=== PATIENT | male | born 1955 | race Caucasian/White ===

== ENCOUNTER 2018-06-10 09:09 | Emergency (ER) | payer OTHER ==
[2018-06-10] MEDS ORDERED: diphenhydrAMINE 50 MG/ML VIAL ONE (09:32)
[2018-06-10] MEDS ORDERED: Adacel (T-DAP) 0.5 ML VIAL ONE (09:32)
[2018-06-10 09:49] LABS: PTT 29.4 SEC (22.9-36.1); Prothrombin Time 12.9 SEC (12.0-14.7)
[2018-06-10 09:51] LABS: ALT (SGPT) 26 U/L (8-55); AST (SGOT) 18 U/L (5-34); Albumin 4.2 g/dL (3.4-4.8); Alkaline Phosphatase 64 U/L (40-150); Anion Gap 14 mmol/L (10-20); BUN (Urea Nitrogen) 14 mg/dL (8.4-25.7); Bilirubin, Total 0.9 mg/dL (0.2-1.2); Calc. Creatinine Clearance 0 mL/min (70-130); Calcium 9.2 mg/dL (7.8-10.44); Carbon Dioxide 22 mmol/L (23-31); Chloride 109 mmol/L (98-107); Estimated GFR-MDRD 75; Glucose 103 mg/dL (80-115); Potassium 3.6 mmol/L (3.5-5.1); Protein, Total 7.2 g/dL (5.8-8.1); Sodium 141 mmol/L (136-145)
[2018-06-10 09:52] LABS: #Basophils 0.1 thou/uL (0.0-0.2); #Eosinphils 0.1 thou/uL (0.0-0.7); #Monocytes 0.6 thou/uL (0.11-0.59); #Neutrophils 3.6 thou/uL (1.40-6.50); %Basophils 1.1 % (0.0-1.0); %Eosinophils 2.2 % (0.0-10.0); %Lymphocytes 31.2 % (21.0-51.0); %Monocytes 8.8 % (0.0-10.0); %Neutrophils 56.7 % (42.0-75.0); Hemoglobin 15.6 g/dL (14.0-18.0); Mean Corpuscular HGB CONC 37.5 g/dL (32.0-36.0); Mean Corpuscular Hemoglobin 29.9 pg (27.0-31.0); Mean Corpuscular Volume 79.8 fL (78.0-98.0); Platelet Count 188 thou/uL (130-400); Red Blood Cell (RBC) Count 5.21 mill/uL (4.70-6.10); White Blood Cell (WBC) Count 6.3 thou/uL (4.8-10.8)
[2018-06-10 09:53] LABS: MDiff Complete? YES
[2018-06-10] MEDS ORDERED: Fentanyl 100 MCG/2 ML VIAL ONE (12:26)
[2018-06-10 13:16] LABS: #Basophils 0.1 thou/uL (0.0-0.2); #Eosinphils 0.1 thou/uL (0.0-0.7); #Lymphocytes 1.9 thou/uL (1.20-3.40); #Monocytes 0.6 thou/uL (0.11-0.59); #Neutrophils 4.8 thou/uL (1.40-6.50); %Basophils 0.7 % (0.0-1.0); %Eosinophils 1.2 % (0.0-10.0); %Lymphocytes 26.1 % (21.0-51.0); %Monocytes 7.8 % (0.0-10.0); %Neutrophils 64.2 % (42.0-75.0); Hemoglobin 15.8 g/dL (14.0-18.0); Lymphocytes 22 % (21-51); MDiff Complete? YES; Mean Corpuscular HGB CONC 36.8 g/dL (32.0-36.0); Mean Corpuscular Hemoglobin 29.6 pg (27.0-31.0); Mean Corpuscular Volume 80.3 fL (78.0-98.0); Mean Platelet Volume 6.8 fL (7.4-10.4); Monocytes 7 % (0-10); Neutrophil 71 % (42-75); Platelet Count 184 thou/uL (130-400); RBC Distribution Width 11.1 % (11.5-14.5); Red Blood Cell (RBC) Count 5.33 mill/uL (4.70-6.10); White Blood Cell (WBC) Count 7.4 thou/uL (4.8-10.8)
[2018-06-10 16:08] LABS: #Basophils 0.1 thou/uL (0.0-0.2); #Eosinphils 0.1 thou/uL (0.0-0.7); #Lymphocytes 2.2 thou/uL (1.20-3.40); #Monocytes 0.8 thou/uL (0.11-0.59); #Neutrophils 6.7 thou/uL (1.40-6.50); %Eosinophils 1.2 % (0.0-10.0); %Lymphocytes 22.1 % (21.0-51.0); %Monocytes 8.1 % (0.0-10.0); %Neutrophils 67.7 % (42.0-75.0); Hemoglobin 15.3 g/dL (14.0-18.0); Mean Corpuscular HGB CONC 37.1 g/dL (32.0-36.0); Mean Corpuscular Hemoglobin 29.8 pg (27.0-31.0); Mean Corpuscular Volume 80.3 fL (78.0-98.0); Mean Platelet Volume 6.7 fL (7.4-10.4); Platelet Count 174 thou/uL (130-400); RBC Distribution Width 11.1 % (11.5-14.5); Red Blood Cell (RBC) Count 5.12 mill/uL (4.70-6.10); White Blood Cell (WBC) Count 9.8 thou/uL (4.8-10.8)
[2018-06-10 16:20] LABS: MDiff Complete? YES
== END 2018-06-10 16:21 | disposition home or self-care (01) ==
LOC: BURERS 09:09
DX: T63.061A Toxic effect of venom of other North and South American snake, accidental (unintentional), initial encounter (principal); Z79.82 Long term (current) use of aspirin
CPT/HCPCS: 80053; 85025; 85384; 85610; 85730; 90471; 90715; 94760; 96374; 96375; J1200; J3010

== ENCOUNTER 2020-04-29 09:40 | Outpatient (CLI) | payer MEDICARE ==
--- NOTE | 2020-04-30 07:32 | RAD ---
RIGHT ELBOW FOUR VIEWS: 04/29/20 No fracture or joint effusion was seen. There is some bony spurring in the joint, particularly involv ing the coronoid process and radial head. Regarding the lateral condyle of the distal humerus, no spe cific abnormality is seen here at the area marked for concern. IMPRESSION: Degenerative changes as noted. POS: HOME
== END 2020-04-29 09:41 | disposition home or self-care (01) ==
LOC: BURRAD 09:40
PROVIDERS: ATTEND Family Medicine
DX: M25.421 Effusion, right elbow (principal); M19.021 Primary osteoarthritis, right elbow

== ENCOUNTER 2020-06-16 08:48 | Outpatient (CLI) | payer MEDICARE ==
--- NOTE | 2020-06-16 14:43 | CT ---
EXAM: CT NECK SOFT TISSUE POST CONTRAST: HISTORY: Swelling. Mass and neck lump. COMPARISON: None. CORRELATION: None. FINDINGS: Brain parenchyma: No pathologic enhancement of the visualized brain parenchyma. Sinuses: Bilateral maxillary sinus mucus retention cyst. Nasopharynx:Adequate aeration. No mucosal abnormality. Oral cavity:Aerodigestive tract is patent. No mucosal abnormality. Limited evaluation of the oral cav ity due to dental amalgam artifact. Midline fatty raphae of the tongue is preserved. Hypopharynx: There is asymmetric fullness with associated soft tissue mass at the level of the left t ongue base/lingual tonsil. There is effacement of the left vallecula and piriform sinus. This soft tissue mass measures 1.7 x 1.5 cm.. Larynx: No mucosal abnormality. Paraspinal muscles: Symmetric attenuation of the paraspinal muscles and symmetric attenuation of the sternocleidomastoid muscles. Parotid and salivary glands: Symmetric attenuation of the parotid and submandibular glands. Thyroid gland: Unremarkable. Spine: Vertebral body height is maintained. No fracture. There is severe loss of disc space height at C6-C7. There are varying degrees of central canal stenosis and neural foraminal narrowing on the basis of change. The great vessels of the neck: Atherosclerosis involving both carotid bifurcations and proximal inter nal carotid arteries. Technique limits evaluation. Lymph nodes: Enlarged left level II lymph node measures 1.3 x 1.6 cm. There is a rounded nonenlarged left level V lymph node measuring 0.5 x 0.7 cm. Lung apices and upper mediastinum: No acute abnormality. IMPRESSION: 1. Mucosal based mass involving the left tongue base/lingual tonsils with extension into the left chalo lecula and piriform sinus. 2. Left neck lymphadenopathy, worrisome for metastases. Transcribed Date/Time: 06/16/2020 12:08 PM
[2020-06-16] MEDS ORDERED: Iopamidol 370 76% 100 ML VIAL ONE (15:19)
== END 2020-06-16 08:49 | disposition home or self-care (01) ==
LOC: BURCT 08:48
PROVIDERS: ATTEND Family Medicine
DX: R22.1 Localized swelling, mass and lump, neck (principal); R59.0 Localized enlarged lymph nodes; K14.8 Other diseases of tongue
CPT/HCPCS: 70491; Q9967

== ENCOUNTER 2020-06-18 08:01 | Outpatient (CLI) | payer MEDICARE ==
--- NOTE | 2020-06-18 09:12 | CT ---
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 Correlation: Neck CT 06/16/2020 COMPARISON: None FINDINGS: Chest CT: Mediastinum: No mass, lymphadenopathy or hematoma. Aorta: Thoracic and abdominal aorta have a normal caliber. No periaortic fat stranding Heart: Normal heart size. No significant pericardial fluid Trachea and central bronchi: Patent Pleural spaces: No pleural effusion Right lung: Dependent atelectatic changes. No suspicious masses, or consolidation. Pleural-based roun d glass nodule in the right upper lobe measures 0.3 x 0.5 cm. Pleural-based groundglass nodule along the lateral aspect of the right upper lobe measures 0.5 x 0.5 cm. Small groundglass nodule in t he right upper lobe measures 0.3 x 0.2 cm. Left lung:Subtle groundglass nodule in the left upper lobe measuring 0.4 x 4 cm. 0.3 x 0.2 cm groundg lass nodule in the left upper lobe. 0.4 x 0.2 cm groundglass nodule in the left upper lobe. Pneumothorax: None Abdomen CT: Gallbladder: Contracted, likely due to nonfasting statePortal vein: Patent Liver: Appropriate enhancement. Spleen: Appropriate enhancement Pancreas: Appropriate enhancement Adrenal glands: Appropriate enhancement Lymphadenopathy: No gastrohepatic, retrocrural or periportal lymphadenopathy Kidneys: Symmetric enhancement. Bilaterally no obstructive uropathy Mesentery: No mass, lymphadenopathy, free air or free fluid Alimentary canal: Gastric mucosa, duodenum and multiple normal caliber small bowel loops. Normal ileo cecal junction. Appendix is not appreciated. No secondary signs of appendicitis. Contrast and fecal material is noted in the colon. Pelvis CT: No mass, lymphadenopathy, free air or free fluid Urinary bladder: Normal mucosa Presacral fat: Preserved Bilateral inguinal hernias containing mesenteric fat Osseous structures:No lytic or blastic lesions in the osseous structures IMPRESSION: 1. Multiple peripheral groundglass nodules on the left and right lung which are too small to further characterize. Short-term follow-up CT is recommended. These nodules are too small to adequately assessed by PET imaging.
[2020-06-18] MEDS ORDERED: Iopamidol 370 76% 100 ML VIAL ONE (11:39)
== END 2020-06-18 08:02 | disposition home or self-care (01) ==
LOC: BURCT 08:01
PROVIDERS: ATTEND Family Medicine
DX: R22.1 Localized swelling, mass and lump, neck (principal); R91.8 Other nonspecific abnormal finding of lung field
CPT/HCPCS: 71260; 74177; Q9967